=== PATIENT | female | born 1990 | race Caucasian/White ===

== ENCOUNTER 2024-08-19 17:33 | Emergency (ER) | payer BC, SELFPAY ==
[2024-08-19 17:48] VITALS: BP 153/95; PULSE 71; RESP 18; TEMP 36.8; O2SAT 99; BMI 40.1
--- NOTE | 2024-08-19 18:18 | EXP.UTC ---
Discharge Plan Disposition Patient Disposition: Home, Self-Care Condition: Good Prescriptions Prescriptions: New sulfacetamide sodium 10 % drops 1 drp ophthalmic (eye) Q3H 7 Days Qty: 15 0RF Referrals Follow up/Referrals: Neha Macias MD [Primary Care Provider] - See instructions Activity Restrictions/Add. Instructions Additional Instructions/Restrictions: Antibiotic drops as ordered Contact precautions discussed If symptoms worsen or do not improve return Follow-up with PCP this week if needed Clinical Impressions Clinical Impression: Fair Plain eye disease of left eye Instructions Patient Instructions: DI for Conjunctivitis Print Language Print Language: Irish Discharge ED Provider[facility] [facility] [place] [place] General Stated complaint: left eye pain Mode of Arrival: Ambulatory Source of Information: Patient Time Seen by Provider: 08/19/24 18:06 Description of Symptoms (Recalled from Triage Doc. by RN): RIGHT EYE IRRIATED WITH DRAINAGE HEENT Symptoms (Recalled from RN notes): Yes Resp Symptoms (Recalled from RN notes): No Skin Symptoms (Recalled from RN notes): No MS Symptoms (Recalled from RN notes): No Functional Status (Recalled from RN notes): WNL History of Present Illness Provider Complaint: 34-year-old female presents for right eye irritation with drainage that started this morning Related Data Previous Rx's ?Medication ?Instructions ?Recorded sulfacetamide sodium 10 % eye drops 1 drp ophthalmic (eye) Q3H 7 days 08/19/24 #15 mL Allergies Allergy/AdvReac Type Severity Reaction Status Date / Time Penicillins Allergy Rash Verified 08/19/24 17:51 metoclopramide (From Reglan) AdvReac Drowsy Verified 08/19/24 17:51 Worker's Comp Is this a Worker's Comp case?: No [facility] Disclaimer: The information contained in this section may have been updated after the patient was seen, as this information can be updated by other users. Surgical History , DRAW[employer] IN [employer]) History of Social History , DRAW[employer] IN [employer]) Smoking Status: Unknown if ever smoked alcohol intake: never current occupational status: employed Travel in the last 8 weeks: None ROS Obtained: Yes Systems reviewed as appropriate & no additional complaints except as documented Eyes Eyes: Reports system reviewed and no additional complaints, except as documented, Reports as per HPI, Reports eye discharge, Reports irritation and Reports itchy eyes Allergic/Immunologic Allergic/Immunologic: Reports itchy eyes Physical Exam General General appearance: alert and in no apparent distress Eye Eye exam: Present conjunctival redness and discharge Respiratory Respiratory exam: Present normal lung sounds bilaterally Cardiovascular Cardiovascular exam: Present regular rate and normal rhythm Neurological Exam Neurological exam: Present alert and oriented X3 Skin Skin exam: Present warm and intact Medical Decision Making Medical Records Medical records reviewed: Yes I reviewed the patient's medical records. Screening: Per USPSTF and CDC recommendations, given the prevalence of disease in our region, it is our hospital?s policy to screen for HIV and viral Hepatitis for all patients aged 18 and over and those with ongoing risk factors. Won Inquiry Pt receiving controlled substance: No Vital Signs: 08/19/24 17:48 Temperature 98.3 F Temperature Source Oral Pulse Rate [Left Radial] 71 Respiratory Rate 18 Blood Pressure [Left Arm] 153/95 H Blood Pressure Mean [Left Arm] 114 02 Sat by Pulse Oximetry 99
[2024-08-19 18:32] VITALS: BP 153/95; PULSE 71; RESP 18; TEMP 36.8
== END 2024-08-19 18:32 | disposition home or self-care (01) ==
PROVIDERS: Emergency Provider Nurse Practitioner Family; PCP Family Medicine
DX: H10.022 Other mucopurulent conjunctivitis, left eye (principal)
CPT/HCPCS: 99212; G0381

== ENCOUNTER 2025-01-26 04:31 | Emergency (ER) | payer BC, SELFPAY ==
[2025-01-26] VITALS (14 sets, daily range): BP systolic 106–147; BP diastolic 80–107; PULSE 79–164; RESP 9–20; TEMP 36.6–36.8; O2SAT 98–100; BMI 40.3
--- NOTE | 2025-01-26 04:34 | ECG_ITS ---
APPROVED REPORT Exam: Resting ECG HR:153 bpm ECG Measurements Heart Rate 153 AXES QRSd 74 QRS 55 QT 266 T 52 QTc 352 Conclusion ATRIAL FIBRILLATION WITH RAPID VENTRICULAR RESPONSE LOW QRS VOLTAGE IN PRECORDIAL LEADS [QRS DEFLECTION < 1.0 mV IN CHEST LEADS] MODERATE ST DEPRESSION [0.05+ mV ST DEPRESSION] No STEMI Electronically signed by : RAMONA CASPER, 01/26/2025 07:47:15
[2025-01-26] MEDS: ASPIRIN 81MG CHEWABLE TABLET 324 MG PO (04:42)
[2025-01-26] MEDS: LACTATED RINGERS 1000ML 1,000 ML 999 ML IV (04:48)
[2025-01-26 04:51] LABS: Hematocrit 43.7 % (37.0-47.0); Hemoglobin 14.6 g/dL (12.2-16.2); Immature Granulocytes % 0.2 %; Mean Corpuscular HGB Conc 33.4 g/dL (31.8-35.4); Mean Corpuscular Hemoglobin 29.1 pg (27.0-31.2); Mean Corpuscular Volume 87.2 fl (81-99); Nucleated Red Blood Cells % 0 %; Platelet Count 238 K/mm3 (142-424); Red Blood Count 5.01 M/mm3 (4.20-5.40); Red Cell Distribution Width-SD 42.5 fL; White Blood Count 9.6 K/mm3 (4.8-10.8)
[2025-01-26 04:57] LABS: Chloride 102 mmol/L (98-107)
[2025-01-26 04:58] LABS: Albumin Level 5.1 g/dl (3.5-5.0); Potassium 4.4 mmoL/L (3.5-5.1); Sodium 137 mmol/L (136-145)
[2025-01-26 05:00] LABS: Blood Urea Nitrogen 14 mg/dl (7-17); Creatinine Clearance Estimated 165 mL/min (50-200); Creatinine,Serum 0.80 mg/dl (0.52-1.04); Estimated Glomerular Filt Rate 82 ml/min (>60); GFR (African American) 99 ML/MIN (>60)
[2025-01-26 05:01] LABS: Alanine Aminotransferase 24 U/L (12-78); Albumin/Globulin Ratio 1.3 (1.1-1.8); Alkaline Phosphatase 63 U/L (38-126); Anion Gap 17.4 mEq/L (5-15); Aspartate Amino Transferase 44 U/L (14-36); Bilirubin,Total 0.9 mg/dl (0.2-1.3); Calcium 8.8 mg/dl (8.4-10.2); Carbon Dioxide 22 mmol/L (22.0-30.0); Globulin 4.0 g/dL (1.3-3.2); Glucose 108 mg/dl (74-100); Total Protein,Serum 9.1 g/dl (6.3-8.2)
[2025-01-26 05:08] LABS: HCG Qualitative, Serum Negative (Negative)
--- OUTSIDE RECORDS SUMMARY | 2025-01-26 05:08 | XMS_ITS | Clinical Summary ---
Author Organization Healthcare Address [address] [place] [address] Care Team Providers Care Hammer Smith Name Role Phone Bhargav Blanca MD Primary Care Provider [phone] Allergies Active Allergy Reactions Criticality Noted Date Comments Metoclopramide Other - please docum ent in the comment field Low 05/29/2022 Lethargy Penicillins Hives,Itching,Rash High 11/11/2012 Medications famotidine (Pepcid) 20 MG tablet Active Multiple Vitamins-Minerals (MULTIVIT/MULTIMIN ERAL ADULT PO) Activ e Biotin 10 MG capsule Active Active Problems Problem Noted Date Diagnosed Date Menorrhagia with regular cycle 12/27/2023 Acid reflux 09/14/2023 History of gout 09/14/2023 History of uterine fibroid 09/14/2023 Morbid obesity 05/25/2014 Family History Medical History Relation Name Comments No Known Problems Daughter Chronic Kidney Disease (NKF Classification) Father Levon Whittle Depression Father Levon Whittle Diabetes Father Levon Whittle Hypertension Father Levon Whittle Kidney disease Father Levon Whittle Obesity Father Levon Whittle Stroke Father Levon Whittle No Known Problems Father's Brother No Known Problems Father's Sister Heart attack Maternal Grandfather Cancer Maternal Grandmother female cancer, pt does not know what it is Heart attack Maternal Grandmother Depression Mother Shruthi Whittle Diabetes Mother Shruthi Whittle Hyperlipidemia Mother Shruthi Whittle Hypertension Mother Shruthi Whittle MRSA Mother Shruthi Whittle Obesity Mother Shruthi Whittle Pulmonary embolism Mother Shruthi Whittle Diabetes Mother's Brother 1 Hypertension Mother's Brother 1 Diabetes Mother's Brother 2 Hypertension Mother's Brother 2 Chronic Kidney Disease (NKF Classification) Mother's Brother 3 Diabetes Mother's Sister Hypertension Mother's Sister Pancreatic cancer Paternal Grandfather Chronic Kidney Disease (NKF Classification) Paternal Grandmother Diabetes Paternal Grandmother Hypertension Sister Neha Mistry Obesity Sister Neha Mistry pre diabetic Sister Neha Mistry No Known Problems Son Relation Name Status Comments Daughter Alive Father Levon Mistry Father's Brother Alive Father's Sister Alive Maternal Grandfather Maternal Grandmother Mother Shruthi Mistry Mother's Brother 1 Alive Mother's Brother 2 Alive Mother's Brother 3 Mother's Sister Alive Paternal Grandfather Paternal Grandmother Alive Sister Neha Mistry Son Alive Social History Tobacco Use Types Packs/Day Years Used Date Smoking Tobacco: Never Smokeless Tobacco: Never Tobacco Cessation:Counseling Given: Not Answered Alcohol Use Standard Drinks/Week Comments Yes 1 (1 standard drink = 0.6 oz pur e alcohol) Comments No Sex and Gender Information Value Date Recorded Sex Assigned at Not on file Legal Sex Female 8:53 AM EST Gender Identity Not on file Sexual Orientation Not on file Last Filed Vital Signs Vital Sign Reading Time Taken Comments Blood Pressure 134/94 12/27/2023 3:18 PM EDT Pulse 66 12/27/2023 3:18 PM EDT Temperature 36.5 C (97.7 F) 12/27/2023 3:18 PM EDT Respiratory Rate 16 12/27/2023 3:18 PM EDT Oxygen Saturation 100% 12/27/2023 3:18 PM EDT Inhaled Oxygen Concentration - - Weight 108 kg (239 lb 1.4 oz) 12/27/2023 3:18 PM EDT Height 162.6 cm (5' 4 ) 12/27/2023 3:18 PM EDT Body Mass Index 41.04 12/27/2023 3:18 PM EDT Plan of Treatment Health Maintenance Due Date Last Done Comments [facility]-Depression Screening 1989 [facility]-HIV Screening 1989 [facility]-Hepatitis C Screening 1989 [facility]-/Child/Adol SDOH Screenings 1989 [facility]-Varicella Vaccines (1 of 2 - 13+ 2-dose series) 2002 HPV Vaccines (1 - 3-dose series) 2004 [facility]- SDOH Screenings 2007 [facility]-Adult SDOH Screenings 2007 [facility]-Hepatitis B Vaccines (1 of 3 - 19+ 3-dose series) 2008 [id number] Vaccine (3 - season) 2024 08/21/2020, 07/24/2020 [facility]-Influenza Vaccine (#1) 03/26/202505/23, 06/09/2018 [facility]-Pap Smear 09/14/2026 09/14/2023 [facility]-Cervical Cancer Screening 09/14/2028 [facility]-HPV/Cotest 09/14/2028 09/14/2023 [facility]-DTaP,Tdap,and Td Vaccine s (3 - Td or Tdap) 06/01/2032 06/01/2022, 01/05/2018 [facility]-Zoster Vaccines (1 of 2) 2039 [facility]-Obesity Intervention Completed 024, 09/14/2023 [facility]-HIB Vaccines Aged Out No longer e ligible based on patient's age to complete this topic [facility]-Hepatitis A Vaccines Aged Out No longer eligible based on patient's age to complete this topic [facility]-IPV Vaccines Aged Out No longer e ligible based on patient's age to complete this topic [facility]-Pneumococcal Vaccine: Pediatrics (0 to 5 Years) and At-Risk Patients (6 to 49 Years) Aged Out No longer eligible b ased on patient's age to complete this topic [facility]-Rotavirus Vaccines Aged Out No lo nger eligible based on patient's age to complete this topic Procedures Procedure Name Priority Date/Time Associated Diagnosis Comments PAP TEST - CYTOLOGY Routine 09/14/2023 2:54 PM EST Encounter for gynecological examination without abnormal finding from Last 3 Months or Most Recently Relevant to Health Maintenance Results * Pap Test (09/14/2023 2:54 PM EST) Case Report Cytology Case: [id number] Authorizing Provider: Blanquita Tolentino APRN, LONNIE Collected: 09/14/2023 3179 Ordering Location: Obstetrics & Gynecology Received: 09/15/2023 1115 First Screen: Zeinab Hurst Specimen: ThinPrep Pap Test, Liquid-Based Cervical/Vaginal 09/28/2023 3:31 PM EST [facility] Interpretation NEGATIVE FOR INTRAEPITHELIAL LESION OR MALIGNANCY 09/28/2023 3:31 PM EST [facility] at 1531 EST Specimen Adequacy Satisfactory for evaluation; endocervical/sullivan sformation zone component present. Slide examined with [employer] ThinPrep Imaging System but manually screened for technical reasons. 09/28/2023 3:31 PM EST [facility] Cervical cytology is a screening test primarily for squamous cancers and precursors and has associated false negative and positive results. New technologies such as liquid based sampling may decrease but will not eliminate all false negative results. Regular screening and follow-up of unexplained clinical signs and symptoms are recommended to minimize false negative results. Please see the ASCCP website (www.asccp.org)fo r followup recommendations. If HPV testing was requested, correlation with the results is suggested (please call Microbiology at [phone] for results). 09/28/2023 3:31 PM EST [facility] Menstrual Status Cyclic 09/28/19 3:31 PM EST [facility] Contraceptive History Not Applicable 09/28/2023 3:31 PM EST [facility] Screening Type Routine Screen 2023 3:31 PM EST [facility] High Risk? No 09/28/2023 3:31 PM EST [facility] HPV Testing Requested? Request HPV Testing Regardless of Pap Test Findings 09/28/2023 3:31 PM EST [facility] Previous Cancer History No 09/28/2023 3:31 PM EST [facility] Clinical Information Z01.419 - Encounter for gynecological examination without abnormal finding [ICD-10-CM] 09/28/2023 3:31 PM EST [facility] Last Menstrual Period 08/29/2023 09/28/2023 3:31 PM EST [facility] Swab Vaginal and cervical cytologic material / Unknown Non-blood Collection / Unknown 09/14/2023 2:54 PM EST 09/15/2023 11:15 AM EST Blanquita Tolentino APRN, DNP LAB CYTOLOGY ORDERABLES Final Result [facility] [address] [place], [place] [id number] from Last 3 Months or Most Recently Relevant to Health Maintenance Insurance ANTH Care Teams Hammer Smith Relationship Specialty [place] [address] [place] [address] [phone] PCP - General 09/14/23
--- OUTSIDE RECORDS SUMMARY | 2025-01-26 05:08 | XMS_ITS | Encounter Summary ---
Author Organization Healthcare Address [address] [place] [address] Care Team Providers Care Mucker Operator Name Role Phone Bhargav Blanca MD Primary Care Provider [phone] Encounter Details Date Type Department Care Team (Late st Contact Info) Description 10/05/2023 Outside Procedure External Location [address] [place] [address] Jacob Santos APRN, [facility] [address] [place] [address] Social History Tobacco Use Types Packs/Day Years Used Date Smoking Tobacco: Never Smokeless Tobacco: Never Alcohol Use Standard Drinks/Week Comments Yes 1 (1 standard drink = 0.6 oz pur e alcohol) Comments No Sex and Gender Information Value Date Recorded Sex Assigned at Not on file Legal Sex Female 8:53 AM EST Gender Identity Not on file Sexual Orientation Not on file documented as of this encounter Plan of Treatment Not on file documented as of this encounter Procedures Procedure Name Priority Date/Time Associated Diagnosis Comments US BREAST LIMITED LEFT 10/05/2023 3:08 PM EDT documented in this encounter Results * US Breast Limited Left (10/05/2023 3:08 PM EDT) Anatomical Region Laterality Modality Breast Left Ultrasound 10/05/2023 3:08 PM EDT Narrative 10/05/2023 4:58 PM EDT [facility] [address] [place] [address] Name: YENNI SESAY Exam Date: 10/05/2023 : 1990 Age 33 years Gender: F Physician: JACOB SANTOS Facility: [facility] Facility HSV: Outpatient Exam: US BREAST LTD LT LEFT BREAST ULTRASOUND HISTORY: Palpable abnormality FINDINGS: No cystic or solid mass is present. Echotexture is unremarkable. IMPRESSION: No discrete mass BI-RADS 1: Negative RECOMMENDATION: Clinical correlation Dictated By: Agnieszka Simmons Transcribed By: Agnieszka Telles Transcribed On: 10/05/2023 4:30 PM Electronically signed by: Agnieszka Simmons 10/05/2023 Thank you for referring YENNI SESAY to [facility]. Legally authenticated by HILTON CONLEY 2023-10-05 16:30:41 Procedure Note Provider, [facility] 10/05/2023 [place] [address] Name: YENNI SESAY Exam Date: 10/05/2023 : 1990 Age 33 years Gender: F Physician: JACOB SANTOS Facility: [facility] Facility HSV: Outpatient Exam: US BREAST LTD LT LEFT BREAST ULTRASOUND HISTORY: Palpable abnormality FINDINGS: No cystic or solid mass is present. Echotexture isunremarkable. IMPRESSION: No discrete mass BI-RADS 1: Negative RECOMMENDATION: Clinical correlation Dictated By: Agnieszka Simmons Transcribed By: Agnieszka Telles Transcribed On: 10/05/2023 4:30 PM Electronically signed by: Agnieszka Simmons 10/05/2023 Thank you for referring YENNI SESAY to [facility]. Legally authenticated by HILTON CONLEY 2023-10-05 16:30:41 Jacob Santos APRN, DNP IMG BI PROCEDURES Final Result documented in this encounter Visit Diagnoses Not on filedocumented in this encounter Additional Health Concerns Assessment Noted Time A Body Mass Index follow-up plan has been documented for the patient 09/14/2023 3:23 PM EST documented as of this encounter Care Teams Mucker Operator Relationship Specialty Start Date End Date Bhargav Blanca MD [address] [place] [address] PCP - General 09/14/23 documented as of this encounter
--- OUTSIDE RECORDS SUMMARY | 2025-01-26 05:09 | XMS_ITS | Data Portability ---
Author Organization [facility] & RIVER Zazueta ADMIN Address [address] [place] [id number] Care Team Providers Care Balloon Tester Name Role Phone SHIRIN SINGH Family Medicine SHIRIN MACIAS Primary Care Provider [phone] Assessment Encounter Date Assessment Date Assessment LastModified by Organization Details LastModified Time 03/04/2023 03/04/2023 check labs pt working on healthy habits f/u if sx not improving bp elevated here but normal at home and at work, she will continue to follow [email or web address] Not available 03/04/2023 15:58:58 Plan of Treatment Reminders Order Date Submit Date Provider Last Modified By Organization Details Last Modified Time Details Appointments WELLW 30 2024 08:30A M Shirin Macias MD Not available Not available Not available Lab lipid panel, serum 2023 024 DIXIE [facility], [address], [address], [place], [address], 03/20/2024 10:43:57 vitamin D, 25-hydrox y, total, serum 2023 024 [facility] 19 [facility], [address], [address], [place], [address], 03/28/2024 17:01:15 HbA1c (hemoglob in A1c), blood 2023 024 [facility] 19 [facility], [address], [address], [place], [address], 03/28/2024 17:01:15 CBC w/ auto diff 2023 024 DIXIE [facility], [address], [address], [place], [address], 03/20/2024 09:41:48 CMP, serum or plasma 2023 024 DIXIE [facility], [address], [address], [place], [address], 03/20/2024 10:16:39 lipid panel, serum 2022 023 DIXIE [facility], [address], [address], [place], [address], 03/06/2023 07:13:09 vitamin D, 25-hydrox y, total, serum 2022 023 DIXIE [facility], [address], [address], [place], [address], 03/06/2023 07:13:13 HbA1c (hemoglob in A1c), blood 2022 023 DIXIE [facility], [address], [address], [place], [address], 03/06/2023 07:13:12 CBC w/ auto diff 2022 023 DIXIE [facility], [address], [address], [place], [address], 03/06/2023 07:13:07 CMP, serum or plasma 2022 023 DIXIE [facility], [address], [address], [place], [address], 03/06/2023 07:13:08 vitamin B12 + folate, serum or blood 2022 023 DIXIE [facility], [address], [address], [place], [address], 03/06/2023 07:13:12 iron + total iron-bind ing capacity (TIBC), serum 2022 023 DIXIE [facility], [address], [address], [place], [address], 03/06/2023 07:13:11 thyroid panel, serum 2022 023 DIXIE [facility], [address], [address], [place], [address], 03/06/2023 07:13:10 magnesium , serum or plasma 2022 023 DIXIE [facility], [address], [address], [place], [address], 03/06/2023 07:13:14 Referral None recorded. Procedures None recorded. Surgeries None recorded. Imaging None recorded. Medication Orders Medrol (Timi) 4 mg tablets in a dose pack 2022 023 [facility]5 [facility] #[id number], [address] [place], [address], 03/04/2023 15:22:37 Patient TargetsNo targets recorded. Patient InstructionsNo instructions recorded. Reason for Referral None Reported. Results Created Date Observation Date Name Description Value Unit Range Abnormal Flag Note LastModifiedBy Organization Detail LastModifiedTime 03/05/2003/06/2023 CBC WITH DIFFE RENTI AL/PL ATELE T WBC 6.4 x10e3 /uL 3.4-10 .8 Not Available [facility] ([facility]) [address] [facility], [place], [address], 03/06/2023 07:13:07 03/05/2003/06/2023 CBC WITH DIFFE RENTI AL/PL ATELE T RBC 4.71 x10e6 /uL 3.77-5 .28 Not Available [facility] ([facility]) [address] [facility], [place], [address], 03/06/2023 07:13:07 03/05/20 23 03/06/2023 CBC WITH DIFFE RENTI AL/PL ATELE T hemoglobin 14.1 g/dL 11.1-1 5.9 Not Available [facility] ([facility]) [address] [place], [address], 03/06/2023 07:13:07 03/05/20 23 03/06/2023 CBC WITH DIFFE RENTI AL/PL ATELE T hematocrit 42.2 % 34.0-4 6.6 Not Available [facility] ([facility]) [address] [place], [address], 03/06/2023 07:13:07 03/05/20 23 03/06/2023 CBC WITH DIFFE RENTI AL/PL ATELE T MCV 90 fL 79-97 Not Available [facility] ([facility]) [address] [place], [address], 03/06/2023 07:13:07 03/05/20 23 03/06/2023 CBC WITH DIFFE RENTI AL/PL ATELE T MCH 29.9 pg 26.6-3 3.0 Not Available [facility] ([facility]) [address] [place], [address], 03/06/2023 07:13:07 03/05/20 23 03/06/2023 CBC WITH DIFFE RENTI AL/PL ATELE T MCHC 33.4 g/dL 31.5-3 5.7 Not Available [facility] ([facility]) [address] [place], [address], 03/06/2023 07:13:07 03/05/20 23 03/06/2023 CBC WITH DIFFE RENTI AL/PL ATELE T RDW 13.0 % 11.7-1 5.4 Not Available [facility] ([facility]) [address] [place], [address], 03/06/2023 07:13:07 03/05/20 23 03/06/2023 CBC WITH DIFFE RENTI AL/PL ATELE T platelets 228 x10e3 /uL 150-45 0 Not Available [facility] ([facility]) [address] [facility], [place], [address], 03/06/2023 07:13:07 03/05/20 23 03/06/2023 CBC WITH DIFFE RENTI AL/PL ATELE T neutrophils 55 % not estab. Not Available [facility] ([facility]) [address] [facility], [place], [address], 03/06/2023 07:13:07 03/05/20 23 03/06/2023 CBC WITH DIFFE RENTI AL/PL ATELE T lymphs 31 % not estab. Not Available [facility] ([facility]) [address] [facility], [place], [address], 03/06/2023 07:13:07 03/05/20 23 03/06/2023 CBC WITH DIFFE RENTI AL/PL ATELE T monocytes 11 % not estab. Not Available [facility] ([facility]) [address] [facility], [place], [address], 03/06/2023 07:13:07 03/05/20 23 03/06/2023 CBC WITH DIFFE RENTI AL/PL ATELE T eos 2 % not estab. Not Available [facility] ([facility]) [address] [facility], [place], [address], 03/06/2023 07:13:07 03/05/20 23 03/06/2023 CBC WITH DIFFE RENTI AL/PL ATELE T basos 1 % not estab. Not Available [facility] ([facility]) [address] [facility], [place], [address], 03/06/2023 07:13:07 03/05/20 23 03/06/2023 CBC WITH DIFFE RENTI AL/PL ATELE T immature cells PROJECT MANAGEMENT ANALYST Not Available [facility] ([facility]) [address] [place], [address], 03/06/2023 07:13:07 03/05/20 23 03/06/2023 CBC WITH DIFFE RENTI AL/PL ATELE T neutrophils (absolute) 3.6 x10e3 /uL 1.4-7. 0 Not Available [facility] ([facility]) [address] [place], [address], 03/06/2023 07:13:07 03/05/20 23 03/06/2023 CBC WITH DIFFE RENTI AL/PL ATELE T lymphs (absolute) 2.0 x10e3 /uL 0.7-3. 1 Not Available [facility] ([facility]) [address] [place], [address], 03/06/2023 07:13:07 03/05/20 23 03/06/2023 CBC WITH DIFFE RENTI AL/PL ATELE T monocytes(ab solute) 0.7 x10e3 /uL 0.1-0. 9 Not Available [facility] ([facility]) [address] [place], [address], 03/06/2023 07:13:07 03/05/20 23 03/06/2023 CBC WITH DIFFE RENTI AL/PL ATELE T eos (absolute) 0.1 x10e3 /uL 0.0-0. 4 Not Available [facility] ([facility]) [address] [place], [address], 03/06/2023 07:13:07 03/05/20 23 03/06/2023 CBC WITH DIFFE RENTI AL/PL ATELE T baso (absolute) 0.0 x10e3 /uL 0.0-0. 2 Not Available [facility] ([facility]) [address] [place], [address], 03/06/2023 07:13:07 03/05/20 23 03/06/2023 CBC WITH DIFFE RENTI AL/PL ATELE T immature granulocytes 0 % not estab. Not Available [facility] ([facility]) [address] [facility], [place], [address], 03/06/2023 07:13:07 03/05/20 23 03/06/2023 CBC WITH DIFFE RENTI AL/PL ATELE T immature grans (abs) 0.0 x10e3 /uL 0.0-0. 1 Not Available [facility] ([facility]) [address] [facility], [place], [address], 03/06/2023 07:13:07 03/05/20 23 03/06/2023 CBC WITH DIFFE RENTI AL/PL ATELE T NRBC PROJECT MANAGEMENT ANALYST Not Available [facility] ([facility]) [address] [facility], [place], [address], 03/06/2023 07:13:07 03/05/20 23 03/06/2023 CBC WITH DIFFE RENTI AL/PL ATELE T hematology comments: PROJECT MANAGEMENT ANALYST Not Available [facility] ([facility]) [address] [facility], [place], [address], 03/06/2023 07:13:07 03/05/20 23 03/06/2023 COMP. METAB OLIC PANEL (14) glucose 95 mg/dL 70-99 Not Available [facility] ([facility]) [address] [facility], [place], [address], 03/06/2023 07:13:08 03/05/20 23 03/06/2023 COMP. METAB OLIC PANEL (14) BUN 14 mg/dL 6-20 Not Available [facility] ([facility]) [address] [facility], [place], [address], 03/06/2023 07:13:08 03/05/20 23 03/06/2023 COMP. METAB OLIC PANEL (14) creatinine 0.91 mg/dL 0.57-1 .00 Not Available [facility] ([facility]) [address] [facility] [place], [address], 03/06/2023 07:13:08 03/05/20 23 03/06/2023 COMP. METAB OLIC PANEL (14) eGFR 85 mL/mi n/1.7 3 >59 Not Available [facility] ([facility]) [address] [facility] [place], [address], 03/06/2023 07:13:08 03/05/20 23 03/06/2023 COMP. METAB OLIC PANEL (14) BUN/creatini ne ratio 15 9-23 Not Available [facility] ([facility]) [address] [place], [address], 03/06/2023 07:13:08 03/05/20 23 03/06/2023 COMP. METAB OLIC PANEL (14) sodium 139 mmol/ L 134-14 4 Not Available [facility] ([facility]) [address] [facility] [place], [address], 03/06/2023 07:13:08 03/05/20 23 03/06/2023 COMP. METAB OLIC PANEL (14) potassium 4.3 mmol/ L 3.5-5. 2 Not Available [facility] ([facility]) [address] [place], [address], 03/06/2023 07:13:08 03/05/20 23 03/06/2023 COMP. METAB OLIC PANEL (14) chloride 103 mmol/ L 96-106 Not Available [facility] ([facility]) [address] [place], [address], 03/06/2023 07:13:08 03/05/20 23 03/06/2023 COMP. METAB OLIC PANEL (14) carbon dioxide, total 23 mmol/ L 20-29 Not Available [facility] ([facility]) [address] [place], [address], 03/06/2023 07:13:08 03/05/20 23 03/06/2023 COMP. METAB OLIC PANEL (14) calcium 10.0 mg/dL 8.7-10 .2 Not Available [facility] ([facility]) [address] [place], [address], 03/06/2023 07:13:08 03/05/20 23 03/06/2023 COMP. METAB OLIC PANEL (14) protein, total 7.7 g/dL 6.0-8. 5 Not Available [facility] ([facility]) [address] [facility] [place], [address], 03/06/2023 07:13:08 03/05/20 23 03/06/2023 COMP. METAB OLIC PANEL (14) albumin 4.5 g/dL 3.9-4. 9 Not Available [facility] ([facility]) [address] [facility] [place], [address], 03/06/2023 07:13:08 03/05/20 23 03/06/2023 COMP. METAB OLIC PANEL (14) globulin, total 3.2 g/dL 1.5-4. 5 Not Available [facility] ([facility]) [address] [facility] [place], [address], 03/06/2023 07:13:08 03/05/20 23 03/06/2023 COMP. METAB OLIC PANEL (14) A/G ratio 1.4 1.2-2. 2 Not Available [facility] ([facility]) [address] [facility] [place], [address], 03/06/2023 07:13:08 03/05/20 23 03/06/2023 COMP. METAB OLIC PANEL (14) bilirubin, total 0.2 mg/dL 0.0-1. 2 Not Available [facility] ([facility]) [address] [facility] [place], [address], 03/06/2023 07:13:08 03/05/20 23 03/06/2023 COMP. METAB OLIC PANEL (14) alkaline phosphatase 68 IU/L 44-121 Not Available [facility] ([facility]) [address] [place], [address], 03/06/2023 07:13:08 03/05/20 23 03/06/2023 COMP. METAB OLIC PANEL (14) AST (SGOT) 19 IU/L 0-40 Not Available [facility] ([facility]) [address] [place], [address], 03/06/2023 07:13:08 03/05/20 23 03/06/2023 COMP. METAB OLIC PANEL (14) ALT (SGPT) 19 IU/L 0-32 Not Available [facility] ([facility]) [address] [place], [address], 03/06/2023 07:13:08 03/05/20 23 03/06/2023 LIPID PANEL cholesterol, total 164 mg/dL 100-19 9 Not Available [facility] ([facility]) [address] [place], [address], 03/06/2023 07:13:09 03/05/20 23 03/06/2023 LIPID PANEL triglyceride s 119 mg/dL 0-149 Not Available [facility] ([facility]) [address] [place], [address], 03/06/2023 07:13:09 03/05/20 23 03/06/2023 LIPID PANEL HDL cholesterol 41 mg/dL >39 Not Available [facility] ([facility]) [address] [place], [address], 03/06/2023 07:13:09 03/05/20 23 03/06/2023 LIPID PANEL VLDL cholesterol kaci 22 mg/dL 5-40 Not Available [facility] ([facility]) [address] [place], [address], 03/06/2023 07:13:09 03/05/20 23 03/06/2023 LIPID PANEL LDL chol calc ([facility]) 101 mg/dL 0-99 above high normal Not Available [facility] ([facility]) [address] [place], [address], 03/06/2023 07:13:09 03/05/20 23 03/06/2023 LIPID PANEL comment: PROJECT MANAGEMENT ANALYST Not Available [facility] ([facility]) [address] [place], [address], 03/06/2023 07:13:09 03/05/20 23 03/06/2023 THYRO ID PROFI LE II TSH 2.370 uIU/m L 0.450- 4.500 Not Available [facility] ([facility]) [address] [place], [address], 03/06/2023 07:13:10 03/05/20 23 03/06/2023 THYRO ID PROFI LE II thyroxine (T4) 5.4 ug/dL 4.5-12 .0 Not Available [facility] ([facility]) [address] [place], [address], 03/06/2023 07:13:10 03/05/2003/06/2023 THYRO ID PROFI LE II T3 uptake 26 % 24-39 Not Available [facility] ([facility]) [address] [place], [address], 03/06/2023 07:13:10 03/05/2003/06/2023 THYRO ID PROFI LE II free thyroxine index 1.4 1.2-4. 9 Not Available [facility] ([facility]) [address] [place], [address], 03/06/2023 07:13:10 03/05/2003/06/2023 THYRO ID PROFI LE II triiodothyro nine (T3) 93 NG/dL 71-180 Not Available [facility] ([facility]) [address] [place], [address], 03/06/2023 07:13:10 03/05/20 23 03/06/2023 IRON AND TIBC iron bind.cap.(TI BC) 354 ug/dL 250-45 0 Not Available [facility] ([facility]) [address] [place], [address], 03/06/2023 07:13:11 03/05/20 23 03/06/2023 IRON AND TIBC UIBC 283 ug/dL 131-42 5 Not Available [facility] ([facility]) [address] [facility], [place], [address], 03/06/2023 07:13:11 03/05/20 23 03/06/2023 IRON AND TIBC iron 71 ug/dL 27-159 Not Available [facility] ([facility]) [address] [place], [address], 03/06/2023 07:13:11 03/05/20 23 03/06/2023 IRON AND TIBC iron saturation 20 % 15-55 Not Available [facility] ([facility]) [address] [place], [address], 03/06/2023 07:13:11 03/05/20 23 03/06/2023 VITAM IN B12 AND FOLAT E vitamin B12 618 pg/mL 232-12 45 Not Available [facility] ([facility]) [address] [place], [address], 03/06/2023 07:13:11 03/05/20 23 03/06/2023 VITAM IN B12 AND FOLAT E folate (folic acid), serum >20.0 NG/mL >3.0 A serum folat e yazmin ntrat ion of less than 3.1 ng/mL is consi dered to repre sent clini kaci defic iency . Not Available [facility] ([facility]) [address] [facility], [place], [address], 03/06/2023 07:13:11 03/05/2003/06/2023 HEMOG LOBIN A1C hemoglobin A1C 5.7 % 4.8-5. 6 above high normal Predi abete s: 5.7 - 6.4 Diabe ihsan: >6.4 Glyce alayna contr ol for adult s with diabe ihsan: <7.0 Not Available [facility] ([facility]) [address] [facility], [place], [address], 03/06/2023 07:13:12 03/05/2003/06/2023 VITAM IN D, 25-HY DROXY vitamin D, 25-hydroxy 51.5 NG/mL 30.0-1 00.0 Vitam in D defic iency has been defin ed by the Insti tute of Medic ine and an Endoc rine Socie ty pract ice guide line as a level of serum 25-OH vitam in D less than 20 ng/mL (1,2) . The Endoc rine Socie ty went on to furth er defin e vitam in D insuf ficie ncy as a level betwe en 21 and 29 ng/mL (2). 1. IOM (Inst itute of Medic ine). 2009. Dieta ry refer ence intak es for calci um and D. Penny cooper [place]: [facility] . 2. Danny neal [place], Marques pitt [place], Cyndi off-F bria i TILLMAN, et al. Evalu ation , treat ment, and preve ntion of vitam in D defic iency : an Endoc rine Socie ty clini kaci pract ice guide line. JCEM. 2010; 96(7) :1911 -30. Not Available [facility] ([facility]) [address] [facility], [place], [address], 03/06/2023 07:13:13 03/05/2003/06/2023 MAGNE SIUM magnesium 2.0 mg/dL 1.6-2. 3 Not Available [facility] ([facility]) [address], [place], [address], 03/06/2023 07:13:14 03/20/2003/20/2024 CBC AUTO W DIFF WBC 6.8 K/uL 4.0-10 .5 Not Available [facility] ([facility]) [address] , [place], [address], 03/20/2024 09:41:48 03/20/20 24 03/20/2024 CBC AUTO W DIFF RBC 4.6 M/mm3 4.2-6. 4 Not Available [facility] ([facility]) [address] , [place], [address], 03/20/2024 09:41:48 03/20/2003/20/2024 CBC AUTO W DIFF HGB 13.6 gm/dL 12.5-1 6.0 Not Available [facility] ([facility]) [address] , [place], [address], 03/20/2024 09:41:48 03/20/20 24 03/20/2024 CBC AUTO W DIFF HCT 41.5 % 37.0-4 7.0 Not Available [facility] ([facility]) [address] , [place], [address], 03/20/2024 09:41:48 03/20/2003/20/2024 CBC AUTO W DIFF MCV 90.8 fL 78-100 Not Available [facility] ([facility]) [address] , [place], [address], 03/20/2024 09:41:48 03/20/2003/20/2024 CBC AUTO W DIFF MCH 29.8 pg 27-31 Not Available [facility] ([facility]) [address] , [place], [address], 03/20/2024 09:41:48 03/20/20 24 03/20/2024 CBC AUTO W DIFF MCHC 32.8 g/dL 32-36 Not Available [facility] ([facility]) [address] , [place], [address], 03/20/2024 09:41:48 03/20/20 24 03/20/2024 CBC AUTO W DIFF RDW 12.9 % 11.5-1 4.0 Not Available [facility] ([facility]) [address] , [place], [address], 03/20/2024 09:41:48 03/20/20 24 03/20/2024 CBC AUTO W DIFF platelet count 201 K/uL 150-45 0 Not Available [facility] ([facility]) [address] , [place], [address], 03/20/2024 09:41:48 03/20/20 24 03/20/2024 CBC AUTO W DIFF MPV 10.1 fL 6-9.5 high Not Available [facility] ([facility]) [address] , [place], [address], 03/20/2024 09:41:48 03/20/20 24 03/20/2024 CBC AUTO W DIFF neutrophil% 66.9 % 43-65 high Not Available [facility] ([facility]) [address] [place], [address], 03/20/2024 09:41:48 03/20/20 24 03/20/2024 CBC AUTO W DIFF lymphocyte% 25.9 % 20.5-4 5.5 Not Available [facility] ([facility]) [address] [place], [address], 03/20/2024 09:41:48 03/20/20 24 03/20/2024 CBC AUTO W DIFF monocyte% 6.2 % 5.5-11 .7 Not Available [facility] ([facility]) [address], [place], [address], 03/20/2024 09:41:48 03/20/20 24 03/20/2024 CBC AUTO W DIFF eosinophil% 0.4 % 0.9-2. 9 low Not Available [facility] ([facility]) [address], [place], [address], 03/20/2024 09:41:48 03/20/20 24 03/20/2024 CBC AUTO W DIFF basophil% 0.3 % 0.2-1. 0 Not Available [facility] ([facility]) [address], [place], [address], 03/20/2024 09:41:48 03/20/2003/20/2024 CBC AUTO W DIFF immature granulocytes % 0.3 % 0.0-0. 8 Not Available [facility] ([facility]) [address], [place], [address], 03/20/2024 09:41:48 03/20/20 24 03/20/2024 CBC AUTO W DIFF nucleated red blood cells % 0.0 % Not Available [facility] ([facility]) [address], [place], [address], 03/20/2024 09:41:48 03/20/20 24 03/20/2024 CBC AUTO W DIFF neutrophil# 4.6 K/uL 2.2-4. 8 Not Available [facility] ([facility]) [address], [place], [address], 03/20/2024 09:41:48 03/20/20 24 03/20/2024 CBC AUTO W DIFF lymphocyte# 1.8 cell/ mcL 1.3-2. 9 Not Available [facility] ([facility]) [address], [place], [address], 03/20/2024 09:41:48 03/20/20 24 03/20/2024 CBC AUTO W DIFF monocyte# 0.4 cell/ mcL 0.3-0. 8 Not Available [facility] ([facility]) [address] , [place], [address], 03/20/2024 09:41:48 03/20/2003/20/2024 CBC AUTO W DIFF eosinophil# 0.0 cell/ mcL 0-0.2 Not Available [facility] ([facility]) [address] , [place], [address], 03/20/2024 09:41:48 03/20/2003/20/2024 CBC AUTO W DIFF basophil# 0.0 cell/ mcL 0.0-1. 0 Not Available [facility] ([facility]) [address] , [place], [address], 03/20/2024 09:41:48 03/20/2003/20/2024 CBC AUTO W DIFF immature gramulocytes # 0.02 K/uL Not Available [facility] ([facility]) [address] , [place], [address], 03/20/2024 09:41:48 03/20/2003/20/2024 CBC AUTO W DIFF nucleated red blood cells # 0.00 K/uL Not Available [facility] ([facility]) [address], [place], [address], 03/20/2024 09:41:48 03/20/2003/20/2024 CBC AUTO W DIFF manual differential NO Not Available [facility] ([facility]) [address] , [place], [address], 03/20/2024 09:41:48 03/20/20 24 03/20/2024 HEMOG LOBIN A1C A1C 5.5 % 3.8-5. 6 GLYCO SYLAT ED HEMOG LOBIN (A1C) EXPEC GREGOR RANGE S: <6.5 NON-D IABET IC 6.5-7 .5 EXCEL LENT 7.5-8 .5 GOOD >8.5 POOR Not Available [facility] ([facility]) [address] , [place], [address], 03/20/2024 09:48:31 03/20/20 24 03/20/2024 COMP METAB OLIC PANEL sodium 140 mmol/ L 136-14 5 Not Available [facility] ([facility]) [address] , [place], [address], 03/20/2024 10:16:39 03/20/20 24 03/20/2024 COMP METAB OLIC PANEL potassium 4.4 mmol/ L 3.6-5. 0 Not Available [facility] ([facility]) [address] [place], [address], 03/20/2024 10:16:39 03/20/20 24 03/20/2024 COMP METAB OLIC PANEL chloride 105 mmol/ L 98-107 Not Available [facility] ([facility]) [address], [place], [address], 03/20/2024 10:16:39 03/20/20 24 03/20/2024 COMP METAB OLIC PANEL carbon dioxide 30.8 mmol/ L 21.0-3 2.0 Not Available [facility] ([facility]) [address] [place], [address], 03/20/2024 10:16:39 03/20/20 24 03/20/2024 COMP METAB OLIC PANEL anion gap 8.6 Not Available [facility] ([facility]) [address] [place], [address], 03/20/2024 10:16:39 03/20/20 24 03/20/2024 COMP METAB OLIC PANEL glucose 81 mg/dL 70-120 Not Available [facility] ([facility]) [address] [facility], [address], 03/20/2024 10:16:39 03/20/20 24 03/20/2024 COMP METAB OLIC PANEL BUN 13 mg/dL 7-18 Not Available [facility] ([facility]) [address], [place], [address], 03/20/2024 10:16:39 03/20/20 24 03/20/2024 COMP METAB OLIC PANEL creatinine 1.0 mg/dL 0.6-1. 3 Not Available [facility] ([facility]) [address] , [place], [address], 03/20/2024 10:16:39 03/20/20 24 03/20/2024 COMP METAB OLIC PANEL glomerular filtration rate >60 mlper min 60- Not Available [facility] ([facility]) [address] , [place], [address], 03/20/2024 10:16:39 03/20/20 24 03/20/2024 COMP METAB OLIC PANEL total protein 8.0 g/dL 6.4-8. 2 Not Available [facility] ([facility]) [address] , [place], [address], 03/20/2024 10:16:39 03/20/20 24 03/20/2024 COMP METAB OLIC PANEL albumin 4.2 g/dL 3.4-5. 0 Not Available [facility] ([facility]) [address] , [place], [address], 03/20/2024 10:16:39 03/20/20 24 03/20/2024 COMP METAB OLIC PANEL globulin 3.8 Not Available [facility] ([facility]) [address] , [place], [address], 03/20/2024 10:16:39 03/20/20 24 03/20/2024 COMP METAB OLIC PANEL alb/glob ratio 1.1 0.7-2 Not Available [facility] ([facility]) [address] , [place], [address], 03/20/2024 10:16:39 03/20/20 24 03/20/2024 COMP METAB OLIC PANEL calcium 9.0 mg/dL 8.5-10 .5 Not Available [facility] ([facility]) [address], [place], [address], 03/20/2024 10:16:39 03/20/20 24 03/20/2024 COMP METAB OLIC PANEL bilirubin total 0.40 mg/dL 0.10-1 .00 Not Available [facility] ([facility]) [address], [place], [address], 03/20/2024 10:16:39 03/20/20 24 03/20/2024 COMP METAB OLIC PANEL AST (SGOT) 14 U/L 0-37 Not Available [facility] ([facility]) [address], [place], [address], 03/20/2024 10:16:39 03/20/20 24 03/20/2024 COMP METAB OLIC PANEL ALT (SGPT) 18 U/L 0-65 Not Available [facility] ([facility]) [address] , [place], [address], 03/20/2024 10:16:39 03/20/20 24 03/20/2024 COMP METAB OLIC PANEL alk phosphatase 60 U/L 46-116 Not Available [facility] ([facility]) [address], [place], [address], 03/20/2024 10:16:39 03/20/20 24 03/20/2024 LIPID PANEL triglyceride 94 mg/dL 30-200 Not Available [facility] ([facility]) [address], [place], [address], 03/20/2024 10:16:41 03/20/20 24 03/20/2024 LIPID PANEL cholesterol 133 mg/dL 0-200 Not Available [facility] ([facility]) [address], [place], [address], 03/20/2024 10:16:41 03/20/20 24 03/20/2024 LIPID PANEL HDL 44 mg/dL 40-104 Not Available [facility] ([facility]) [address], [place], [address], 03/20/2024 10:16:41 03/20/20 24 03/20/2024 LIPID PANEL LDL calculated 70 mg/dL 0-130 Not Available [facility] ([facility]) [address], [place], [address], 03/20/2024 10:16:41 03/20/20 24 03/20/2024 VITAM IN D, 25-HY DROXY vitamin D, 25-hydroxy 43.5 NG/mL 30.0-1 00.0 Not Available [facility] ([facility]) [address], [place], [address], 03/20/2024 10:41:22 Result Notes None recorded. Procedures Surgical History Date Name Laterality Status Provider Name and Address Organization Details Recorded Time 4 Date of Last Pap Smear completed Radha RAI - [facility] - [place] [facility] [place] 03/20/2024 08:38:44 2 Abdominal Surgery completed Radha RAI - [facility] - [place] [facility] [place] 03/20/2024 08:38:55 8 Abdominal Surgery completed Radha RAI - [facility] - [place] [facility] [place] 03/20/2024 08:38:55 7 Dilation and curettage completed Mikayla RAI - [facility] - [place] [facility] [place] 02/24/2023 10:01:49 7 Voice Pathologist Surgery completed Radha RAI - [facility] - [place] [facility] [place] 03/20/2024 08:38:55 section completed Victorina WALLACE [facility] & [place] 03/17/2024 10:19:16 Imaging Results None recorded. Procedure Notes None recorded. Medical Equipment None Reported. Allergies Allergen ID Allergen Name Allergen Category Reaction Reaction Severity Criticality Documentation Date Start Date Code Code System Note Provider Name and Address Organization Details Recorded Time 06299 Product containin g penicilli n (product) medicatio n hives Not available Not available 02/19/2023 90900 8001 SNOMED CECELIA Sosa [facility] & [place] 3 11:33:17 33131 Reglan medicatio n other Not available Not available 02/19/2023 9230 RxNorm flu like sympt oms CECELIA Goldsmith [facility] & [place] 4 10:22:25 Medications Name Sig Start Date Stop Date Status Note LastModified by Organization Details LastModified Time ibuprofen 800 mg tablet TAKE 1 TABLET BY MOUTH EVERY 6 HOURS NEEDED FOR PAIN 03/17 completed Not Available Not Available Not Available oxycodone-a cetaminophe n 5 mg-325 mg tablet TAKE 1 TABLET BY MOUTH EVERY 4 HOURS FOR PAIN . DO NOT EXCEED DAILY AMOUNT 6 TABLETS A DAY 03/04 completed Not Available Not Available Not Available famotidine 20 mg tablet TAKE 1 TABLET BY MOUTH TWICE DAILY active Not Available Not Available No t Available methylpredn isolone 4 mg tablets in a dose pack TAKE 6 TABLETS ON DAY 1 DIRECTED ON PACKAGE AND DECREASE BY 1 TAB EACH DAY FOR A TOTAL OF 6 DAYS 03/04 completed Not Available Not Available Not Available colchicine 0.6 mg tablet TAKE 2 TABLETS BY MOUTH ON DAY 1, AND THEN TAKE 1 TABLET BY MOUTH ONCE A DAY 03/04 completed Not Available Not Available Not Available cyclobenzap rine 5 mg tablet Take 1 tablet twice a day by oral route as needed for 10 days. active Not Available Not Available No t Available multivitami n active Not Available Not Available Not Available azelastine 137 mcg-flutica sone 50 mcg/spray nasal spray [place] 1 spray twice a day by intranasa l route. active Not Available Not Available No t Available vitamin D3 1,250 mcg (50,000 unit)-vitam in K2 200 mcg capsule Take by oral route. 03/17 completed Not Available Not Available Not Available Vitals Date Recorded Body weight Body mass index (BMI) Body height Body temperature Oxygen saturation Oxygen saturation in Arterial blood by Pulse oximetry Heart rate Respiratory rate Systolic And Diastolic Provider Name and Address Organization Details Last Updated DateTime 3 510865. 09 g 42.9 kg/m2 162.56 cm 97.5 [degF] 98 % 98 % 96 /min 18 /min 140/90 mm[Hg] Duong [facility] & [place] 3 15:26:30 Date Recorded Body mass index (BMI) Body height Provider Name and Address Organization Details Last Updated DateTime 03/20/2024 39.7 kg/m2 162.56 cm Shirin Macias MD [address], [place], [address], [facility] & [place] 03/20/2024 08:48:48 Date Recorded Body weight Body temperature Oxygen saturation Oxygen saturation in Arterial blood by Pulse oximetry Heart rate Systolic And Diastolic Provider Name and Address Organization Details Last Updated DateTime 4 320917. 84 g 96.7 [degF] 100 % 100 % 75 /min 122/84 mm[Hg] Radha Nguyen [facility] & [place] 4 08:43:42 Social History Question Answer Notes LastModified by [email or web address] Details LastModified Time Tobacco Smoking Status [facility] [place] 02/24/2023 10:01:32 Do You Have An Advance Directive? No [email or web address] Information not available 03/20/2024 Are You Blind Or Do You Have Difficulty Seeing? No [email or web address] Information not available 03/20/2024 What Is Your Level Of Caffeine Consumption? Occasional Two Cups A Week Information not available 03/04/2023 Sex: Unknown Functional Status Question Answer Note LastModified by [email or web address] Details LastModified Time Do you use any illicit or recreational drugs? No [email or web address] Information not available 02/24/2023 What is your level of alcohol consumption? Occasional Information not available 03/04/2023 What is your exercise level? Occasional Information not available 03/20/2024 Mental Status Question Answer Note LastModified by Organization D etails LastModified Time Do you feel stressed (tense, restless, nervous, or anxious, or unable to sleep at night)? [id number] [email or web address] Information not available 03/20/2024 Family History Relationship Description Onset Age of this Age Resolved Age Notes LastModified by Organization Details LastModified Time Mother M ni re's disease [email or web address] Not available 08:38:10 Mother Diabetes mellitus [email or web address] Not available 03/20 08:38:10 Mother Hypertensive disorder [email or web address] Not available 02/24 10:00:52 Mother Disorder of endocrine system pt. added direct ly (03/17) [email or web address] Not available 03/17/2024 09:16:45 Father Hypertensive disorder [email or web address] Not available 02/24 10:00:52 Father Kidney disease [email or web address] Not available 02/24 10:01:07 Father Cerebrovascu lar accident [email or web address] Not available 10:01:16 Father Diabetes mellitus [email or web address] Not available 03/20 08:38:10 Father Disorder of endocrine system pt. added direct ly (03/17) [email or web address] Not available 03/17/2024 09:16:45 Sister Hypertensive disorder [email or web address] Not available 02/24 10:00:58 Sister Polycystic ovary syndrome [email or web address] Not available 03/20 08:38:10 Medical History Condition Response Other N Obesity N Hypertension N Hypothyroidism Y Gynecological History Statement/Question Response Abnormal Pap N Flow Moderate Date of LMP 03/03/2024 Frequency of Cycle (Q days) 28 Sexually Active? Y Menses Monthly Y Duration of Flow (days) 6 Date of Last Pap Smear 11/24/2023 Current Control Method Condoms Age at Menarche 11 Obstetrics History GPAL:G 0 P 0 0 0 0 Immunizations Vaccine Type Date Status Note Provider Nam e and Address Organization Details Recorded Time Influenza, split virus, quadrivalent, preservative 8 completed Mikayla theodore, [place] - [facility] [place] [facility] [place] 02/24/2023 09:59:52 Influenza, MDCK, quadrivalent, PF 2 completed Mikayla Milo null, [place] [facility] [place] [facility] [place] 02/24/2023 09:59:52 COVID-19, mRNA, LNP-S, PF, 100 mcg/0.5mL dose or 50 mcg/0.25mL dose 1 completed Mikayla Milo null, [place] [facility] [place] [facility] [place] 02/24/2023 09:59:52 COVID-19, mRNA, LNP-S, PF, 100 mcg/0.5mL dose or 50 mcg/0.25mL dose 0 completed Mikayla Milo null, [place] - [facility] [place] [facility] [place] 02/24/2023 09:59:52 Tdap 8 completed Mikayla Milo null, [place] [facility] [place] 02/24/2023 09:59:52 Tdap 2 completed Mikayla Milo null, [place] [facility] [place] [facility] [place] 02/24/2023 09:59:53 Past Encounters Encounter ID Performer Location Encounter Start Date Encounter Closed Date Diagnosis/Indication Diagnosis SNOMED-CT Code Diagnosis ICD10 Code Diagnosis Note [id number] Dhruv Glez MD [address] [place] [address] 02/19/2023 11:23:21 02/19/2023 12:00:33 Polyp of nasal cavity 419450853 J33.0 no evidence of infection. counselled . using flonase bid already [id number] Shirin Macias MD [facility] [address] [place] [address] 03/04/2023 15:14:41 03/04/2023 16:00:04 Adult health examination 448383102 Z00.00 Hyperlipid emia screening 890631077 Z13.220 Diabetes m ellitus screening 799025193 Z13.1 Fatigue 55171831 R53.83 Morbid obesity 547030909 E66.01 Vitamin D deficiency 347 48453 E55.9 [id number] MD Ibrahima Saha [facility] [place] [address] [place] [id number] 03/05/2023 08:54:07 03/05/2023 09:13:57 [id number] MD Ibrahima Saha [facility] [place] [address] [place] [id number] 03/20/2024 08:37:22 03/20/2024 09:15:47 Adult health examination 973516807 Z00.00 check labspt doing well on current plan for diet/suppl ement and feels wellantici mcclain normal a1c, but will plan for f/u in 3 months if notmay need to add extra vit D pending result Hyperlipid emia screening 588644497 Z13.220 Prediabetes 003773028 R7 3.03 Obesity 792820531 E66.9 Vitamin D deficiency 347 94533 E55.9 Health Concerns Section Related Observation LastModified by Organization Detai ls LastModified Time None Recorded Concern Status LastModified by Organization Details LastModified Time None Recorded Advance Directives Directive N: Payers Insurance Date Sequence Insurance Name Policy Number Policy Cruz Covered Member ID Cruz Member ID Guarantor Name 03/05/2023 1 [place] [id number] [facility] [id number] [facility] 03/23/2024 1 [place] [id number] [facility] [id number] [facility] 03/05/2023 1 [place] [id number] [facility] [id number] [facility] 03/05/2023 1 [place] [id number] [facility] [id number] [facility] Sesay Notes Date Note Type Note Provider Name and Address Organization Details Recorded Time 02/19/2023 text/html left sided sore throat and it seems that Ihad a URI 3 weeks ago. no fevers or chills. I have had tonsil stones in the past. Dhruv Glez MD [address], [place], [address], [place] [facility] & [place] 02/19/2023 12:34:56 03/04/2023 text/html Patient is here for yearly check up and follow up.Last dental visit: goes every 6 monthsLast eye exam: Aug 2022 Tdap vaccine: fall2Covid vaccine: 2 doses of covid vaccines mammogram: no family hx of breast cancer in first degree, Paternal aunt with hxColon cancer screening: no family hx of colon cancer, pt not yet due for screeningPap smear: May 2019, currently due and plans to see [employer] seat HLP screening: hx of elevation, due for labsDM Screening: due for screening, no hx of GDMHTN screening: elevated here today , normal at home and at work Diet: feels that diet is relatively healthy and well balancedExercise: recently started to increase her activity and go for more walks Mood: feels that she is doing wellSafety: pt wears seat belt, has smoke detectors in home, feels safe at home. She has hx of vit D def and is due for labs to f/u on this. SHe had been having issues with fatigue and recently restarted it to see if it would help. She feels that she sleeps well and is working on increasing her hydration. She has been having a good bit of sinus drainage and has been using flonase BID. She now has nasal polyps. She takes zyrtec daily. Shirin Macias MD [address], [place], [address], [place] - [facility] & [place] 03/04/2023 15:59:29 03/20/2024 text/html Patient is here for yearly check up and follow up.Last dental visit: goes every 6 monthsLast eye exam: Aug 2023 Tdap vaccine: fall2Covid vaccine: 2 doses of covid vaccinesFlu: due in the fall mammogram: no family hx of breast cancer in first degree, Paternal aunt with hxColon cancer screening: no family hx of colon cancer, pt not yet due for screeningPap smear: November 2023 with [employer] seat, WNL HLP screening: hx of elevation, due for labsDM Screening: see belowHTN screening: no hx of HTN, WNL here today Diet: feels that diet is healthy and well balanced with fresh options and adequate protein. SHe does also follow intermittent fasting. THis has resulted in a more balanced diet and healthier options.Exercise: struggles with dedicated exercise due to schedule/work Mood: feels that she is doing wellSafety: pt wears seat belt, has smoke detectors in home, feels safe at home. She has hx of vit D def and is due for labs to f/u on this. SHe had been having issues with fatigue and recently restarted it to see if it would help. She feels that she sleeps well and is working on increasing her hydration. Prediabetes: she has been using yerba mate tea and fiber which has helped a great deal and she is down about 20 pounds since last visit due to this. She is due for f/u a1c. Vit D def: due for labs to f/u on this, currently on supplementation via MV. Shirin Macias MD [address], [place], [address], [facility] - [place] & [place] 03/20/2024 09:10:07 OBGyn Episode No OBEpisode recorded.
--- OUTSIDE RECORDS SUMMARY | 2025-01-26 05:09 | XMS_ITS | Referral Summary ---
Author Organization [employer] ([place], [place], [place], [place]) Address [address] [place] [address] Care Team Providers Care Clinching Machine Operator Name Role Phone Unavailable Primary Care Provider Unavailabl e Allergies Active Allergy Reactions Criticality Noted Date Comments Penicillin Hives High 05/29/2022 Metoclopramide 05/29/2022 Medications cetirizine (ZyrTEC) 10 MG tablet Take 10 mg by mouth daily. Active vitamin w/qmnesqn-xjpv-f olate ( PLUS) 27 mg iron- 1 mg Tab Take 1 tablet by mouth daily. Active fluticasone propionate (FLONASE) 50 mcg/actuation nasal spray 1 spray by Nasal route daily. Active famotidine (PEPCID) 20 MG tablet Take 1 tablet (20 mg total) by mouth 2 (two) times daily. 180 tablet 3 06/28/2022 Active famotidine (PEPCID) 20 MG tablet Take 1 tablet (20 mg total) by mouth 2 (two) times daily. 160 tablet 3 06/28/2022 Active Active Problems Problem Noted Date Diagnosed Date Previous delivery affecting 1 08/27/2021 Third trimester 06/11/2022 History of 06/01/2022 Resolved Problems Problem Noted Date Diagnosed Date Resolved Date History of hypothyroidism 05/29/2022 Obesity in 05/29/2022 022 History of miscarriage, currently 05/29/2022 07/03/2022 Nausea and vomiting in 05/29/2022 07/03/2022 History of primary section 05/29/2022 07/03/2022 Rh negative, Rhogam given 04/01/22 05/29/2022 07/03/2022 Immunizations Name Administration Dates Next Due Tdap 06/01/2022 Social History Tobacco Use Types Packs/Day Years Used Date Smoking Tobacco: Never Smokeless Tobacco: Never Alcohol Use Standard Drinks/Week Comments Never 0 (1 standard drink = 0.6 oz pur e alcohol) PRAPARE - Transportation Answer Date Re corded In the past 12 months, has l ack of transportation kept you from medical appointments or from getting medications? No 06/26/2022 Lack of Transportation (Non-Medical) Not on file 06/26/2022 Family and Community Support Answer Dhaval e Recorded Help with Day to Day Activities Not on file 08/08/2023 Feeling Lonely or Isolated Not on file 08/08 Educational Attainment Answer Date Tung rded Speak language other than Ivorian at home Not on file 08/08/2023 Want help with school or training Not on file 08/08/2023 Substance Use Answer Date Recorded Used prescription meds for non-medical reasons N ot on file 08/08/2023 Used illegal drugs past 12 months Not on file 08/08/2023 Comments No Sex and Gender Information Value Date Recorded Sex Assigned at Not on file Legal Sex Female 5:48 PM CDT Gender Identity Not on file Sexual Orientation Not on file Last Filed Vital Signs Vital Sign Reading Time Taken Comments Blood Pressure 124/71 08/07/2022 9:31 AM EST Pulse 80 08/07/2022 9:31 AM EST Temperature 36.7 C (98 F) 06/28/2022 8:00 AM EST Respiratory Rate 16 06/28/2022 8:00 AM EST Oxygen Saturation 98% 06/26/2022 11:00 AM EST Inhaled Oxygen Concentration - - Weight 111.1 kg (245 lb) 08/07/2022 9:31 AM EST Height 162.6 cm (5' 4 ) 06/26/2022 6:16 AM EST Body Mass Index 42.05 06/26/2022 6:16 AM EST Functional Status * Are you deaf or do you have serious difficulty hearing? Answer Date of Assessment Author No 06/28/2022 10:29 AM Bernadette Benton RN * Are you blind or do you have serious difficulty seeing, even when wearing glasses? Answer Date of Assessment Author No 06/28/2022 10:29 AM Bernadette Benton RN * Do you have serious difficulty walking or climbing stairs? Answer Date of Assessment Author No 06/28/2022 10:29 AM Bernadette Benton RN * Do you have serious difficulty dressing or bathing? Answer Date of Assessment Author No 06/28/2022 10:29 AM Bernadette Benton RN * Because of a physical, mental, or emotional condition, do you have serious difficulty doing errandsalone such as visiting the doctor? Answer Date of Assessment Author No 06/28/2022 10:29 AM Bernadette Benton RN Mental Status * Because of a physical, mental, or emotional condition, do you have serious difficulty concentrating, remembering, or making decisions? (5 years old or older) Answer Entry Date Author No 06/28/2022 10:29 AM Bernadette Benton RN Plan of Treatment Not on file Procedures Procedure Name Priority Date/Time Associated Diagnosis Comments HIV 1/2 ANTIGEN/ANTIBODY, FOURTH GENERATION W/RFL Routine 12/11/2021 LIPID PANEL Routine 10/01/2021 9:22 AM EST from Last 3 Months or Most Recently Relevant to Health Maintenance Results * HIV 1/2 ANTIGEN/ANTIBODY, FOURTH GENERATION W/RFL (12/11/2021) [facility] External HIV-1/HIV-2 Ab negative Blood us Historical Provider LAB BLOOD ORDERABLES Shey l Result * (ABNORMAL) LIPID PANEL (10/01/2021 9:22 AM EST) [facility] Triglyceride 180 0 - 249 mg/dL 10/01/2021 2:52 PM EST Cholesterol HDL 37.0 mg/dL 2:52 PM EST Comment: Desirable > 60 mg/dl Increased Risk < 40 mg/dl Cholesterol Total 170 0 - 199 mg/dL 10/01/2021 2:52 PM EST Comment: 200 to 239 mg/dL Moderate (borderline) >239 mg/dL High Cholesterol VLDL Calculation 36.0 5.0 - 40.0 mg/dL 10/01/2021 2:53 PM EST Comment:Calculated by Discer n Rule GL_CHEM_TRIG_CMNT Cholesterol LDL Calculation 97.0 0.0 - 99.0 mg/dL 10/01/2021 2:53 PM EST Comment: Calculated by Discern Rule GL_CHEM_TRIG_CMNTDESIRABLE <130 BORDERLINE 130 to 159 HIGH >=160 Cholesterol/HDL Ratio 4.6(H) 0.0 - 3.2 10/01/2021 2:52 PM EST LDL/HDL Ratio 2.6 0.0 - 3.2 10/01/2021 2:53 PM EST Comment:Calculated by Discer n Rule GL_CHEM_TRIG_CMNT Blood 10/01/2021 9:22 AM EST 10/01/2021 2:32 PM EST [facility] Historical Provider PATHOLOGY/CYTOLOGY ORDE ALFREDO Final Result [facility] [address] [phone] from Last 3 Months or Most Recently Relevant to Health Maintenance Insurance [facility] ANTH TRAD Advance Directives For more information, please contact: [phone] * Full Code (Latest Code Status on File) Date Activated Date Inactivated Comments 06/26/2022 4:45 AM 06/28/2022 2:15 PM
--- OUTSIDE RECORDS SUMMARY | 2025-01-26 05:09 | XMS_ITS | Clinical Summary ---
Author Organization [employer] ([place], [place], [place], [place]) Address [address] [place] [address] Care Team Providers Care Card Checker Name Role Phone Unavailable Primary Care Provider Unavailabl e Allergies Active Allergy Reactions Criticality Noted Date Comments Penicillin Hives High 05/29/2022 Metoclopramide 05/29/2022 Medications cetirizine (ZyrTEC) 10 MG tablet Take 10 mg by mouth daily. Active vitamin w/rrrbijm-lsnp-k olate ( PLUS) 27 mg iron- 1 [...] Name Administration Dates Next Due Tdap 06/01/2022 Family History Medical History Relation Name Comments Arthritis Father Diabetes Father Hypertension Father Stroke Father Cancer Maternal Grandmother Arthritis Mother Diabetes Mother Hypertension Mother Relation Name Status Comments Father Maternal Grandmother Mother Social History Tobacco Use Types Packs/Day Years [...] Date Tung rded Speak language other than Salvadorean at home Not on file 08/08/2023 Want [...] Mass Index 42.05 06/26/2022 6:16 AM EST Plan of Treatment Health Maintenance Due Date Last Done Comments Depression Screening (12+) 2001 Hepatitis C Screening 2007 Pap Smear 2010 Tobacco Cessation Counseling and Screening (12+) 08/07/2023 08/07/2022 COVID-19 VACCINE (3 - 2023-2 5 season) 2024 08/21/2020, 07/24/2020 Lipid Panel 10/01/2024 10/01/2021, 07/17/2020, 01/25/2019 Influenza Vaccine (#1) 2025 05/23/2022 DTAP/TDAP/TD VACCINES (3 - T d or Tdap) 06/01/2032 06/01/2022, 01/05/2018 HIV Screening Completed 12/11/2021, 11/28/2021 Pneumococcal Vaccine: 0-49 Years Aged Out No longer eligible b ased on patient's age to complete this topic Procedures Procedure Name Priority Date/Time Associated Diagnosis Comments HIV 1/2 ANTIGEN/ANTIBODY, FOURTH GENERATION W/RFL Routine 12/11/2021 LIPID PANEL Routine 10/01/2021 9:22 AM EST from Last 3 Months or Most Recently Relevant to Health Maintenance Results * HIV 1/2 ANTIGEN/ANTIBODY, FOURTH GENERATION W/RFL (12/11/2021) External HIV-1/HIV-2 Ab negative Blood us Historical Provider LAB BLOOD ORDERABLES Shey l Result * (ABNORMAL) LIPID PANEL (10/01/2021 9:22 AM EST) Triglyceride 180 0 - 249 mg/dL 10/01/2021 [...] 9:22 AM EST 10/01/2021 2:32 PM EST [facility] Historical Provider PATHOLOGY/CYTOLOGY ORDE ALFREDO Final Result [facility] [address] [place] [address] from Last 3 Months or Most Recently Relevant to Health Maintenance Insurance [facility] ANTH TRAD Advance Directives For more information, please contact: [phone] * Full Code (Latest Code Status on File) Date Activated Date Inactivated Comments 06/26/2022 4:45 AM 06/28/2022 2:15 PM
[2025-01-26 05:27] LABS: Troponin I < 0.01 ng/ml (0.00-0.034)
--- NOTE | 2025-01-26 05:31 | ECG_ITS ---
APPROVED REPORT Exam: Resting ECG HR:150 bpm ECG Measurements Heart Rate 150 AXES QRSd 78 QRS 72 QT 261 T 47 QTc 346 Conclusion ATRIAL FIBRILLATION WITH RAPID VENTRICULAR RESPONSE WITH ABERRANT CONDUCTION OR VENTRICULAR PREMATURE COMPLEXES MODERATE ST DEPRESSION [0.05+ mV ST DEPRESSION] No STEMI Electronically signed by : RAMONA CASPER, 01/26/2025 07:47:58
--- NOTE | 2025-01-26 05:35 | ECG_ITS ---
APPROVED REPORT Exam: Resting ECG HR:111 bpm ECG Measurements Heart Rate 111 AXES DE 182 P 68 QRSd 71 QRS 71 QT 310 T 58 QTc 375 Conclusion SINUS TACHYCARDIA ABNORMAL RHYTHM ECG No STEMI Electronically signed by : RAMONA CASPER, 01/26/2025 07:48:11
[2025-01-26] MEDS: ETOMIDATE 40MG/20ML VIAL 8 MG IV (05:39)
[2025-01-26] MEDS: ONDANSETRON 4MG/2ML VIAL 4 MG IV (05:40)
[2025-01-26 05:52] LABS: D-Dimer 0.66 ug/mL (0.0-0.5)
[2025-01-26] MEDS: BISOPROLOL 5MG TABLET 5 MG PO (06:02)
--- NOTE | 2025-01-26 06:41 | PC.NURSE ---
IV discontinued. Catheter tip intact. Bleeding controlled
--- NOTE | 2025-01-26 07:17 | ED_ITS ---
Discharge Plan Disposition Patient Disposition: Home, Self-Care Condition: Good Prescriptions Prescriptions: New bisoprolol fumarate 5 mg tablet 5 mg PO DAILY Qty: 7 0RF No Action sulfacetamide sodium 10 % drops 1 drp ophthalmic (eye) Q3H 7 Days Qty: 15 0RF Referrals Follow up/Referrals: Provider,Nicole, [Primary Care Provider, Medical] - See instructions Darwin Boss MD [Staff Physician, Cardiology] - See instructions Referral Note: Paroxysmal A-fib, in A-fib RVR in the ER and cardioverted Activity Restrictions/Add. Instructions Additional Instructions/Restrictions: Your evaluated in the ER and are believe to be appropriate for discharge at this time. Take the prescribed bisoprolol as directed, this medication can cause low blood pressure but the goal of it is to control your heart rate. This is a once daily medication, so start it tomorrow, 01/27/2025. See Dr. Boss with [facility] cardiology on 01/29/2025, at 1 PM in the office for follow-up and reevaluation. Return to the ER with any new, worsening, or otherwise concerning symptoms. Clinical Impressions Clinical Impression: Atrial fibrillation with rapid ventricular response Print Language Print Language: Filipino Discharge ED Provider: Narayan Sesay General Chief Complaint: Chest Pain Stated Complaint: chest pain Time Seen by Provider: 01/26/25 04:37 Mode of Arrival: Ambulatory Source of Information: Patient Description of Symptoms (Recalled from ER Triage Doc. by RN): patient states she woke up at 0400 and felt like her heart was beating fast. she listened to it with her stethescope and her apple watch said she was in afib rvr so she came to the hospital. History of Present Illness HPI narrative: 34-year-old female presents to the ER with a sensation of palpitations and her heart beating fast, she is concerned for A-fib RVR. Patient reports she woke up around 4 AM and felt like her heart was beating fast. She went to bed feeling normal and with a normal heart rate. 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 Patient reports she had 1 previous episode of atrial fibrillation a couple years ago that was very brief and spontaneously resolved, she never had evaluation or workup for it. Patient reports no chest pain or difficulty breathing but she can feel that her heart is racing and irregular. She has no recent illness, she states she has been staying well-hydrated, no fevers or chills, no numbness, tingling, or weakness, no other associated symptoms. Related Data Previous Rx's ?Medication ?Instructions ?Recorded sulfacetamide sodium 10 % eye drops 1 drp ophthalmic ( eye) Q3H 7 days 08/19/24 #15 mL bisoprolol fumarate 5 mg tablet 5 mg PO DAILY #7 tabs 01/26/25 Allergies Allergy/AdvReac Type Severity Reaction Status Date / Time Penicillins Allergy Rash Verified 08/19/24 17:51 metoclopramide (From Reglan) AdvReac Drowsy Verified 08/19/24 17:51 PFSH [facility] Disclaimer: The information contained in this section may have been updated after the patient was seen, as this information can be updated by other users. Surgical History , [employer]) History of Social History (Updated 08/19/24 @ 18:21 by Elham Chacon ([facility]), [employer]) Smoking Status: Never smoker alcohol intake: never current occupational status: employed Travel in the last 8 weeks?: None ROS Obtained: Yes Systems reviewed as appropriate & no additional complaints except as documented Per HPI Physical Exam General General appearance: alert and in no apparent distress Head Head exam: atraumatic and normocephalic Eye Eye exam: Present PERRL and EOMI ENT ENT exam: Present mucous membranes moist Neck Neck exam: Present normal inspection and full ROM Chest Chest inspection: Present symmetric chest wall rise Respiratory Respiratory exam: Present normal lung sounds bilaterally; Absent respiratory distress, wheezes or stridor Cardiovascular Cardiovascular exam: Present tachycardia and irregular rhythm Abdominal Exam Abdominal exam: Present soft; Absent distention or tenderness Extremities Exam Extremities exam: Present full ROM; Absent edema Neurological Exam Neurological exam: Present alert and oriented X3; Absent motor sensory deficit Psychiatric Psychiatric exam: Present normal affect and normal mood Skin Skin exam: Present warm and dry HEART Score HEART Score HEART Score assessment performed?: Yes History (anamnesis): Slightly suspicious ECG: Non-specific disturbance Age: <45 years Risk factors: 1-2 risk factors Troponin: </= normal limit HEART Score: 2 Procedures Risk/Benefits of Procedure(s) Were Explained: Yes Procedural Sedation Presedation Evaluation: Performed by Narayan hernandez MD A heart and lung assessment was performed on this patient at: 05:00 (Also reassessed immediately prior to procedure at 0532) Mallampati Score:: Class II Indication: other (Electrocardioversion) ASA Class: II Time of Last PO Intake: 22:00 Preparation: campus monitor applied, pulse oximeter, capnometry used, supplemental O2 applied, suction/airway equipment at bedside and IV secured IV Etomidate dose (mg): 8 (Administered at 0533) Patient Tolerated Procedure: well and no complications Complications: none Additional Comments: Patient tolerated sedation well and recovered quickly back to baseline. Miscellaneous Procedure Procedure Performed: Cardioversion Indication: A-fib RVR, onset less than 48 hours ago Risks and benefits discussed with the patient, consent provided by patient Timeout performed at 0532 immediately prior to procedure. Patient sedated with etomidate. EKG obtained immediately prior to procedure. Procedure details: AP pad placement, ZOLL set to synchronize, 200 J, 1 shock delivered, patient successfully converted to sinus rhythm EKG obtained immediately after procedure demonstrated sinus rhythm. Patient remained hemodynamically stable and quickly recovered. She had no complications and tolerated procedure well. Critical Care Critical Care Time Critical Care Time: No Medical Decision Making Medical Records Medical records reviewed: Yes I reviewed the patient's medical records. MR Comment: Limited records in our system, patient was treated in July for pinkeye Won Inquiry Pt receiving controlled substance: No Vital Signs Vital Signs: 01/26/25 04:34 01/26/25 04:45 01/26/25 05:31 Temperature 98.1 F Temperature Source Oral Pulse Rate 164 H 110 H Pulse Rate [Left] 146 H Respiratory Rate 18 19 Blood Pressure 134/96 H Blood Pressure [Right Arm] 147/107 H Blood Pressure Mean [Right Arm] 120 Blood Pressure Source Blood Pressure Source [Right Arm] Automatic Cuff Blood Pressure Position Blood Pressure Position [Right Arm] Sitting 02 Sat by Pulse Oximetry 100 100 Oxygen Delivery Method Room Air 01/26/25 05:35 01/26/25 05:40 01/26/25 05:45 Temperature Temperature Source Pulse Rate 115 H 108 H 91 H Pulse Rate [Left] Respiratory Rate 12 20 20 Blood Pressure 128/85 119/89 122/86 Blood Pressure [Right Arm] Blood Pressure Mean [Right Arm] Blood Pressure Source Blood Pressure Source [Right Arm] Blood Pressure Position Blood Pressure Position [Right Arm] 02 Sat by Pulse Oximetry 100 99 100 Oxygen Delivery Method 01/26/25 05:46 01/26/25 05:48 01/26/25 05:50 Temperature 98.2 F 98.2 F Temperature Source Oral Oral Pulse Rate 86 Pulse Rate [Left] 162 H 115 H Respiratory Rate 20 16 19 Blood Pressure 116/84 Blood Pressure [Right Arm] 134/96 H 128/85 Blood Pressure Mean [Right Arm] 108 99 Blood Pressure Source Blood Pressure Source [Right Arm] Automatic Cuff Automatic Cuff Blood Pressure Position Blood Pressure Position [Right Arm] Supine Supine 02 Sat by Pulse Oximetry 100 100 99 Oxygen Delivery Method Room Air Room Air Room Air 01/26/25 05:55 01/26/25 06:06 01/26/25 06:15 Temperature Temperature Source Pulse Rate 86 84 90 Pulse Rate [Left] Respiratory Rate 19 9 L 11 L Blood Pressure 124/90 106/81 L 120/80 Blood Pressure [Right Arm] Blood Pressure Mean [Right Arm] Blood Pressure Source Blood Pressure Source [Right Arm] Blood Pressure Position Blood Pressure Position [Right Arm] 02 Sat by Pulse Oximetry 100 98 98 Oxygen Delivery Method Room Air 01/26/25 06:30 01/26/25 06:37 Temperature 98 F Temperature Source Oral Pulse Rate 80 79 Pulse Rate [Left] Respiratory Rate 17 18 Blood Pressure 118/84 118/84 Blood Pressure [Right Arm] Blood Pressure Mean [Right Arm] Blood Pressure Source Automatic Cuff Blood Pressure Source [Right Arm] Blood Pressure Position Sitting Blood Pressure Position [Right Arm] 02 Sat by Pulse Oximetry 99 Oxygen Delivery Method Room Air Lab Data Labs: Lab Results 01/26/25 04:42: WBC 9.6, RBC 5.01, Hgb 14.6, Hct 43.7, MCV 87.2, MCH 29.1, MCHC 33.4, RDW 13.3, Plt Count 238, MPV 10.2, Neut % (Auto) 58.3, Lymph % (Auto) 31.5, [place] % (Auto) 8.6, Eos % (Auto) 1.2, Baso % (Auto) 0.2, Neut # (Auto) 5.6, Lymph # (Auto) 3.0, [place] # (Auto) 0.8, Eos # (Auto) 0.1, Baso # (Auto) 0.0, D- Dimer 0.66 H, Sodium 137, Potassium 4.4, Chloride 102, Carbon Dioxide 22, Anion Gap 17.4 H, BUN 14, Creatinine 0.80, Estimated Creat Clear 165, Estimated GFR 82, Est GFR ( Amer) 99, Glucose 108 H, Calcium 8.8, Total Bilirubin 0.9, AST 44 H, ALT 24, Alkaline Phosphatase 63, Troponin I < 0.01, Total Protein 9.1 H, Albumin 5.1 H, Globulin 4.0 H, Albumin/Globulin Ratio 1.3, Serum HCG, Qual Negative 01/26/25 04:42 01/26/25 04:42 Response Orders (Tests/Meds): ED MEDICATIONS Discontinued Medications Generic Name Dose Route Start Last Admin Trade Name Freq PRN Reason Stop Dose Admin Aspirin 324 mg 01/26/25 04:37 01/26/25 04:42 Aspirin 81mg Chewable Tablet PO 01/26/25 04:38 324 mg ONCE ONE Administration Bisoprolol Fumarate 5 mg 01/26/25 05:41 01/26/25 06:02 Bisoprolol 5mg Tablet PO 01/26/25 05:42 5 mg ONCE ONE Administration Diltiazem HCl 20 mg 01/26/25 04:37 01/26/25 04:41 Diltiazem 25mg/5ml Vial IV 01/26/25 04:38 20 mg ONCE ONE Administration Diltiazem HCl 20 mg 01/26/25 04:53 01/26/25 04:57 Diltiazem 25mg/5ml Vial IV 01/26/25 04:54 20 mg ONCE ONE Administration Etomidate 8 mg 01/26/25 05:21 01/26/25 05:39 Etomidate 40mg/20ml Vial IV 01/26/25 05:22 8 mg ONCE ONE Administration Lactated Ringer's 1,000 mls @ 999 mls/hr 01/26/25 04:45 01/26/25 04:48 Lactated Ringer's 1000 Ml Bag IV 01/26/25 05:45 999 mls/hr .Q1H1M ONE Administration Nitroglycerin 0.4 mg 01/26/25 04:37 Nitroglycerin 0.4mg Sl Tablet SL 01/27/25 04:37 Q5MINP PRN Chest Pain Ondansetron HCl 4 mg 01/26/25 05:26 01/26/25 05:40 Ondansetron 4mg/2ml Vial IV 01/26/25 05:27 4 mg ONCE ONE Administration ORDERS Category Date Time Status Complete Blood Count Auto Diff Stat Lab 01/26/25 04:42 Completed Comprehensive Metabolic Panel Stat Lab 01/26/25 04:42 Completed D-Dimer Stat Lab 01/26/25 04:42 Completed HCG Qualitative, Serum Stat Lab 01/26/25 04:42 Completed Troponin I Stat Lab 01/26/25 04:42 Completed MDM Narrative Medical Decision Narrative: In summary, this 34-year-old female presents to the emergency department today with palpitation. On initial evaluation patient is tachycardic with irregular rhythm, appears to be in A-fib RVR but otherwise hemodynamically stable, afebrile, GCS 15, remainder of exam is benign. Differential diagnosis includes but is not limited to atrial fibrillation, other arrhythmia, also considered the possibility of ACS, electrolyte abnormality, lower suspicion for ACS or PE but both were considered. Ruling out the most morbid conditions drove my assessment. Based on these concerns, I ordered serum labs, cardiac workup. ECG personally interpreted demonstrates atrial fibrillation with rapid ventricular response, normal axis, normal QTc, no STEMI, rate is 153. Patient received multiple doses of IV diltiazem for treatment in an attempt to gain rate control. She tolerated these doses well but did not have any change in her rate or rhythm. Labs personally reviewed demonstrate Normal CBC, CMP nonactionable, initial troponin undetectably low less than 0.01, test negative. D-dimer 0.66 by years criteria PE is excluded. Patient has not had any change in rate or rhythm despite multiple doses of diltiazem. Patient could feel when she went into A-fib and normally has normal rate and rhythm, her symptoms have been less than 48 hours and she has otherwise low risk for stroke so I believe it is prudent to cardiovert the patient and attempt to get her back into a normal sinus rhythm. I had risk-benefit discussion with the patient for electrocardioversion, after discussing risks and benefits, she would like to proceed with the procedure which I believe is reasonable. I explained risks and benefits of procedural sedation with etomidate and the cardioversion, she consented to this. ECG immediately prior to procedure was personally interpreted demonstrated atrial fibrillation, RVR, rate 150, normal axis, normal QTc, no STEMI, no dynamic changes. Patient received etomidate and was cardioverted, see procedure note for details. This was successful after 1 attempt. Repeat ECG immediately after cardioversion demonstrates sinus tachycardia, rate 111, normal axis, normal VT and QTc, no STEMI. Patient tolerated procedure well and recovered well. I discussed this case with cardiology, Dr. Martinez and I discussed patient's onset of symptoms, other comorbidities, history, and labs as well as her successful cardioversion. He recommends a dose of 5 mg bisoprolol in the ER as well as prescription for this and outpatient follow-up with their clinic at 1 PM on Wednesday. He advises against anticoagulation at this time. I appreciate his recommendations patient is agreeable to this plan. Bisoprolol administered. This medication was also prescribed, and only prescribed a short course of it to encourage the patient to follow-up closely with cardiology. She states she will and is planning to either follow-up with our cardiology office or with the office in [place] since that is where she works. I impressed upon her the importance of following up immediately at the beginning of the week for further evaluation. She understands and agrees. Patient was monitored after cardioversion and remained in sinus rhythm. Heart rate improved to the 70s. She continues to rest comfortably and feels significantly improved compared to when she came in. I believe she is appropriate for discharge at this time and does not require further intervention or workup. She is comfortable with this plan. Patient was given instructions on symptomatic management, new prescription use, follow up instructions, and return precautions for the emergency department. Patient indicated understanding and was discharged in stable condition.
== END 2025-01-26 06:50 | disposition home or self-care (01) ==
PROVIDERS: Emergency Provider Emergency Medicine
DX: I48.91 Unspecified atrial fibrillation (principal); R07.9 Chest pain, unspecified
CPT/HCPCS: 80053; 84484; 84703; 85025; 85378; 92960; 93005; 96361; 96374; 96375; 99285; J2405; J7120